=== PATIENT | female | born 1995 | race Caucasian/White ===

== ENCOUNTER 2025-01-20 13:53 | Emergency (ER) | payer OTHER ==
[~2025-01-20] VITALS: Ht 149.9 cm; Wt 124.0 kg
[2025-01-20 14:00] VITALS: TEMP 37; O2SAT 98
[2025-01-20 14:28] LABS: CLARITY URINE CLEAR (CLEAR); COLOR URINE YELLOW (YELLOW); GLUCOSE URINE NEGATIVE (NEGATIVE); KETONES URINE NEGATIVE (NEGATIVE); LEUKOCYTE ESTERASE URINE 1+ (NEGATIVE); NITRITE URINE NEGATIVE (NEGATIVE); OCCULT BLOOD URINE NEGATIVE (NEGATIVE); PROTEIN URINE NEGATIVE (NEGATIVE); SPECIFIC GRAVITY URINE 1.025 (1.005-1.030)
[2025-01-20 15:23] LABS: SQUAMOUS EPITHELIAL CELL URINE 2+ /lpf (RARE/1+)
[2025-01-20 15:25] LABS: BACTERIA URINE 3+; RBC URINE NONE SEEN /hpf (0-2)
[2025-01-20 16:07] LABS: BASOPHILS % 0.4 % (0.0-2.0); DIFFERENTIAL COMMENT 0; EOSINOPHILS % 2.1 % (0.0-5.0); HEMATOCRIT. 35.5 % (36.0-48.0); HEMOGLOBIN. 11.5 g/dL (12.0-16.0); LYMPHOCYTES % 33.3 % (20.0-50.0); MEAN CORPUSCULAR HEMOGLOBIN 25.9 pg (28.0-32.0); MEAN CORPUSCULAR HGB CONC 32.5 g/dL (31.0-37.0); MEAN CORPUSCULAR VOLUME 79.6 fL (81.0-99.0); MEAN PLATELET VOLUME 8.4 fl (7.4-10.4); MONOCYTES % 7.4 % (2.0-8.0); NEUTROPHILS % 56.8 % (40.0-76.0); PLATELET 366 x1000/uL (130-400); RED BLOOD CELL COUNT 4.46 mill/uL (4.2-5.4); RED CELL DISTRIBUTION WIDTH 14.9 % (11.6-14.6); WHITE BLOOD COUNT 6.8 x1000/uL (4.5-11.0)
[2025-01-20 16:15] LABS: CHLORIDE 109 mEq/L (98-107); SODIUM 141 mEq/L (136-145)
[2025-01-20 16:16] LABS: CALCIUM 8.8 mg/dL (8.7-10.4); CARBON DIOXIDE 25 mEq/L (21-32)
[2025-01-20 16:21] LABS: CREATININE 0.6 mg/dL (0.6-1.0); GLUCOSE 106 mg/dL (70-105); UREA NITROGEN BLOOD 7 mg/dL (9-23)
[2025-01-20 16:23] LABS: ALANINE AMINOTRANSFERASE 35 IU/L (10-49); ALBUMIN 4.1 g/dL (3.2-4.8); ASPARTATE AMINOTRANSFERASE 23 IU/L (<34); BILIRUBIN DIRECT < 0.1 mg/dL (<=3.0)
[2025-01-20 16:24] LABS: BILIRUBIN TOTAL 0.2 mg/dL (0.1-1.0); PROTEIN TOTAL 6.9 g/dL (6.0-8.3)
[2025-01-20 16:28] LABS: INR 0.9
[2025-01-20] MEDS ORDERED: ACET-2708 MT (16:36)
[2025-01-20] MEDS ORDERED: NITR-87 MT (16:37)
[2025-01-20 16:46] VITALS: BP 149/93; PULSE 69; RESP 16; O2SAT 98
== END 2025-01-20 16:49 | disposition home or self-care (01) ==
LOC: ER 13:53
DX: M25.551 Pain in right hip (principal); M25.552 Pain in left hip; N39.0 Urinary tract infection, site not specified
CPT/HCPCS: 36415; 73521; 80048; 80076; 81003; 81025; 85025; 99284

== ENCOUNTER 2025-06-01 06:29 | Emergency (ER) | payer MEDICAID ==
[~2025-06-01] VITALS: Ht 162.6 cm; Wt 102.0 kg
[~2025-06-01 06:29] MED LIST: ACET-2708 MT; NITR-87 MT
[2025-06-01 06:30] VITALS: O2SAT 99
[2025-06-01] MEDS: MORPHINE SULFATE 4 MG/ML INJ (FOR IV/IM USE) IV ONE (07:06)
[2025-06-01 07:10] LABS: BASOPHILS % 0.3 % (0.0-2.0); EOSINOPHILS % 1.2 % (0.0-5.0); HEMATOCRIT. 38.2 % (36.0-48.0); HEMOGLOBIN. 12.4 g/dL (12.0-16.0); LYMPHOCYTES % 16.0 % (20.0-50.0); MEAN PLATELET VOLUME 8.0 fl (7.4-10.4); MONOCYTES % 2.8 % (2.0-8.0); NEUTROPHILS % 79.7 % (40.0-76.0); PLATELET 338 x1000/uL (130-400); RED BLOOD CELL COUNT 4.83 mill/uL (4.2-5.4); RED CELL DISTRIBUTION WIDTH 15.1 % (11.6-14.6)
[2025-06-01 07:17] LABS: CLARITY URINE CLEAR (CLEAR); COLOR URINE YELLOW (YELLOW); GLUCOSE URINE NEGATIVE (NEGATIVE); KETONES URINE NEGATIVE (NEGATIVE); LEUKOCYTE ESTERASE URINE NEGATIVE (NEGATIVE); NITRITE URINE NEGATIVE (NEGATIVE); OCCULT BLOOD URINE TRACE (NEGATIVE); PH URINE 6.0 (4.5-8.0); PROTEIN URINE NEGATIVE (NEGATIVE); SPECIFIC GRAVITY URINE 1.008 (1.005-1.030); UROBILINOGEN URINE 1.0 E.U./dL (0.2-1.0)
[2025-06-01 07:24] LABS: HCG SCREEN NEGATIVE
[2025-06-01 07:25] LABS: CREATININE 0.7 mg/dL (0.6-1.0); UREA NITROGEN BLOOD < 5 mg/dL (9-23)
[2025-06-01 07:27] LABS: ASPARTATE AMINOTRANSFERASE 17 IU/L (<34); BILIRUBIN DIRECT 0.1 mg/dL (<=3.0); BILIRUBIN TOTAL 0.4 mg/dL (0.1-1.0); PROTEIN TOTAL 7.1 g/dL (6.0-8.3)
[2025-06-01 07:38] LABS: BACTERIA URINE FEW; RBC URINE NONE SEEN /hpf (0-2); SQUAMOUS EPITHELIAL CELL URINE 1+ /lpf (RARE/1+); YEAST URINE NONE SEEN
[2025-06-01 08:50] VITALS: BP 131/84; PULSE 85; RESP 20; TEMP 36.9; O2SAT 98
== END 2025-06-01 08:51 | disposition home or self-care (01) ==
LOC: ER 06:40
DX: R10.30 Lower abdominal pain, unspecified (principal)
CPT/HCPCS: 80076; 80048; 81003; 84703; 83690; 85025; 36415; 74176; 93976; 76830; 76856; 96374; 99285; J2270; Z7610 ×2